=== PATIENT | female | born 1950 | race Two or more races ===

== ENCOUNTER 2023-12-21 17:38 | Emergency (ER) | payer OTHER ==
[2023-12-21 17:44] VITALS: BP 129/69; PULSE 82; RESP 18; TEMP 98.8; BMI 24.7
[2023-12-21] MEDS ORDERED: DEXAMETHASONE SOD PHOSPHATE 10 MG/1 ML VIAL ONE (18:38)
[2023-12-21] MEDS ORDERED: ALBUTEROL SO4 2.5/IPRATROPIUM 0.5 INH SOL 3 ML VIAL.NEB. NEB ONE (18:38)
[2023-12-21] MEDS: DEXAMETHASONE SOD PHOSPHATE 10 MG/1 ML VIAL IM ONE (18:51)
[2023-12-21] MEDS: ALBUTEROL SO4 2.5/IPRATROPIUM 0.5 INH SOL 3 ML VIAL.NEB. NEB ONE (18:51)
== END 2023-12-21 21:10 | disposition home or self-care (01) ==
LOC: JER 17:38 → JERFT 17:38
PROC: 3E0F7GC Introduction of Other Therapeutic Substance into Respiratory Tract, Via Natural or Artificial Opening (ICD-10-PCS; principal; 2023-12-21)
PROC: 3E023GC Introduction of Other Therapeutic Substance into Muscle, Percutaneous Approach (ICD-10-PCS; 2023-12-21)
DX: R05.9 Cough, unspecified (principal); J20.9 Acute bronchitis, unspecified; Z20.822 Contact with and (suspected) exposure to COVID-19
CPT/HCPCS: 0241U-QW; 71046-TC-FY; 94640; 96375; 99284-25; J1100

== ENCOUNTER 2023-12-27 16:15 | Emergency (ER) | payer OTHER ==
[2023-12-27 16:38] VITALS: BP 161/76; PULSE 68; RESP 20; TEMP 98.8; BMI 24.7
[2023-12-27] MEDS ORDERED: ALBUTEROL SO4 2.5/IPRATROPIUM 0.5 INH SOL 3 ML VIAL.NEB. NEB ONE (17:02)
[2023-12-27] MEDS: ALBUTEROL SO4 2.5/IPRATROPIUM 0.5 INH SOL 3 ML VIAL.NEB. NEB SCH (17:08)
[2023-12-27] MEDS ORDERED: guaiFENesin 200 MG/10 ML 10 ML UNIT-DOSE CUPS ONE (17:52)
[2023-12-27] MEDS: guaiFENesin 200 MG/10 ML 10 ML UNIT-DOSE CUPS PO ONE (17:54)
== END 2023-12-27 18:37 | disposition home or self-care (01) ==
LOC: JER 16:15
PROC: 3E0F7GC Introduction of Other Therapeutic Substance into Respiratory Tract, Via Natural or Artificial Opening (ICD-10-PCS; principal; 2023-12-27)
DX: J40 Bronchitis, not specified as acute or chronic (principal); R05.9 Cough, unspecified; R06.02 Shortness of breath; R09.81 Nasal congestion
CPT/HCPCS: 71046-TC-FY; 93005; 93010; 94640; 99284-25

== ENCOUNTER 2024-01-01 10:32 | Observation (INO) | payer OTHER ==
[2024-01-01] MEDS ORDERED: ALBUTEROL SO4 2.5/IPRATROPIUM 0.5 INH SOL 3 ML VIAL.NEB. NEB ONE ×3 (11:33→16:41)
[2024-01-01] MEDS: ALBUTEROL SO4 2.5/IPRATROPIUM 0.5 INH SOL 3 ML VIAL.NEB. NEB ONE ×3 (11:36→16:40)
[2024-01-01 12:06] LABS: HEMATOCRIT 40.7 % (32.4-45.2); HEMOGLOBIN 13.9 GM/dL (10.7-15.3); MCH 30.2 pg (25.7-33.7); MCHC 34.2 g/dl (32.0-36.0); MEAN CELL VOLUME 88.3 fl (80-96); MEAN PLT VOLUME 8.8 fl (7.5-11.1); PLATELET COUNT 200 10^3/uL (134-434); RBC 4.61 M/mm3 (3.60-5.2); RDW 13.4 % (11.6-15.6); WHITE BLOOD COUNT 9.9 K/mm3 (4.0-10.0)
[2024-01-01 12:10] LABS: VENOUS O2 SATURATION 23.3 % (70-80); VENOUS PCO2 25.4 mmHg (38-52); VENOUS PH 7.597 (7.310-7.410)
[2024-01-01 12:31] LABS: CALCIUM 10.6 mg/dL (8.5-10.1); POTASSIUM 3.9 mmol/L (3.5-5.1)
[2024-01-01 12:32] LABS: ARTERIAL BLD GAS O2 SATURATION 97.2 % (95-98); ARTERIAL BLOOD GAS BASE EXCESS 2.7 mmol/L (-2-2); ARTERIAL BLOOD GAS PO2 75.7 mmHg (80-100)
[2024-01-01 12:32] LABS: ALBUMIN 3.8 g/dl (3.4-5.0); BLOOD UREA NITROGEN 18.1 mg/dL (7-18)
[2024-01-01 12:36] LABS: ARTERIAL BLOOD GAS pH 7.604 (7.350-7.450)
[2024-01-01 12:38] LABS: BILIRUBIN,TOTAL 0.8 mg/dL (0.2-1); TOT PROT 7.8 g/dl (6.4-8.2)
[2024-01-01 14:49] VITALS: RESP 18
[2024-01-01 20:55] VITALS: BMI 26.4
[2024-01-01] MEDS: guaiFENesin 200 MG/10 ML 10 ML UNIT-DOSE CUPS PO PRN (22:33)
[2024-01-01] MEDS: predniSONE 20 MG TABLET (UD) PO SCH (22:33)
[2024-01-01] MEDS: CEFTRIAXONE 1 GM in DEXTROSE 5%-WATER - 50 ML IVPB ONE (22:34)
[2024-01-01] MEDS: AZITHROMYCIN IVPB 500 MG/250 ML BAG IVPB ONE (22:55)
[2024-01-01] MEDS ORDERED: ALBUTEROL SO4 2.5/IPRATROPIUM 0.5 INH SOL 3 ML VIAL.NEB. NEB SCH (23:15)
[2024-01-01] MEDS: ALBUTEROL SO4 2.5/IPRATROPIUM 0.5 INH SOL 3 ML VIAL.NEB. NEB SCH (23:30)
[2024-01-02] MEDS: BENZOCAINE/MENTH/CETYLPYRD CL 1 EACH LOZENGE MM PRN (01:13)
[2024-01-02] MEDS: MELATONIN 5 MG TABLETS PO ONE (01:34)
[2024-01-02 08:57] LABS: HEMATOCRIT 38.2 % (32.4-45.2); MCH 30.3 pg (25.7-33.7); MEAN CELL VOLUME 89.2 fl (80-96); MEAN PLT VOLUME 9.5 fl (7.5-11.1); PLATELET COUNT 181 10^3/uL (134-434); RBC 4.28 M/mm3 (3.60-5.2); RDW 13.8 % (11.6-15.6); WHITE BLOOD COUNT 9.3 K/mm3 (4.0-10.0)
[2024-01-02 10:01] LABS: BLOOD UREA NITROGEN 18.2 mg/dL (7-18); CALCIUM 10.2 mg/dL (8.5-10.1)
[2024-01-02 10:05] LABS: CREATININE 1.1 mg/dL (0.55-1.3)
[2024-01-02] MEDS: AZITHROMYCIN IVPB 250 MG in DEXTROSE 5%-WATER - 250 ML IVPB SCH (11:47)
[2024-01-02] MEDS: methylPREDNISolone NA SUCC 40 MG/1 ML VIAL IVPUSH SCH (12:08)
[2024-01-02] MEDS: ENOXAPARIN NA (PORCINE) 40 MG/0.4 ML DISP.SYRIN SQ SCH (12:13)
[2024-01-02] MEDS: ACETAMINOPHEN 325 MG TABLET (FP) PO PRN (17:12)
[2024-01-02] MEDS: FAMOTIDINE 20 MG TABLET PO PRN (20:12)
[2024-01-02] MEDS: guaiFENesin/D-METHORPHAN HB 10 ML UNIT-DOSE CUPS PO PRN (21:20)
[2024-01-02] MEDS: ATORVASTATIN CA 10 MG TABLET (FP) PO SCH (21:20)
[2024-01-02] MEDS: GABAPENTIN 400 MG CAPSULE PO SCH (21:20)
[2024-01-03] MEDS: LEVOTHYROXINE NA 50 MCG TABLET (FP) PO SCH (06:04)
[2024-01-03 11:50] VITALS: BP 144/70; TEMP 98.4
[2024-01-03] MEDS: LORATADINE 10 MG TABLET PO SCH (12:58)
[2024-01-03] MEDS: FLUTICASONE PROP 0.05% 16 GM NASAL SPRAY NS SCH (12:58)
[2024-01-03 13:28] VITALS: PULSE 127
[2024-01-03] MEDS ORDERED: MONTELUKAST NA 10 MG TABLET PO SCH (22:00)
[2024-01-05 23:06] LABS: PARATHYROID HORM INTACT 27 pg/mL (15-65)
== END 2024-01-03 14:55 | disposition home or self-care (01) ==
LOC: JER 10:32 → JERBED 17:23 → J5S 19:09
PROVIDERS: ADMIT Internal Medicine
PROC: 3E0F7GC Introduction of Other Therapeutic Substance into Respiratory Tract, Via Natural or Artificial Opening (ICD-10-PCS; principal; 2024-01-01)
PROC: 3E03329 Introduction of Other Anti-infective into Peripheral Vein, Percutaneous Approach (ICD-10-PCS; 2024-01-01)
PROC: 3E023GC Introduction of Other Therapeutic Substance into Muscle, Percutaneous Approach (ICD-10-PCS; 2024-01-01)
PROC: 3E033GC Introduction of Other Therapeutic Substance into Peripheral Vein, Percutaneous Approach (ICD-10-PCS; 2024-01-01)
PROC: 3E033NZ Introduction of Analgesics, Hypnotics, Sedatives into Peripheral Vein, Percutaneous Approach (ICD-10-PCS; 2024-01-01)
DX: J20.9 Acute bronchitis, unspecified (principal); E83.52 Hypercalcemia; E78.5 Hyperlipidemia, unspecified; J45.909 Unspecified asthma, uncomplicated; I10 Essential (primary) hypertension; Z90.49 Acquired absence of other specified parts of digestive tract; Z90.79 Acquired absence of other genital organ(s); E03.9 Hypothyroidism, unspecified
CPT/HCPCS: 36415; 36600; 71045-TC-FY; 71275-TC; 80048; 80053; 82310; 82375; 82803; 83050; 83880; 83970; 84439; 84443; 84484; 85027; 93005; 93010; 93306-TC; 94640; 94761; 96365; 96367; 96372; 96375; 99285-25; G0378; Q9967